=== PATIENT | female | born 1940 | race Caucasian/White ===

== ENCOUNTER → 2018-05-04 | Outpatient (CLI) | payer MEDICARE, OTHER ==
[~2018-05-04] MED LIST: AMOX-362 PO; ASPI-1471 PO; ASPI-757 PO; ATOR10TA24 PO; ATOR40TA69 PO; BACDS PO; CALC-649 PO; CIP500 PO; CIPRO; CLAR-1 PO; FLU45SYR17 IM; GINK40TA PO; HCTZ25 PO; HYDR-385 PO; HYDR12.561 PO; IBU600 PO; KET10 PO; LEV112 PO; LEV500 PO; LEVO-3 PO; LEVO88TA45 PO; METO100T20 PO; METO50TA19 PO; METR-1 PO; METXL50 PO; OMEP-125 PO; ONDA4TAB PO; PAN20 PO; PER PO; PNEU0.5D3 IM; POTA10CA40 PO; TRA50 PO; VITA1CAP46 PO
--- NOTE | 2018-05-11 10:16 | RADIOLOGY IMAGING REPORT ---
[place] [facility] [place] NAME: TATIANNA SAMSON : [id number] MR: [id number] V: [id number] EXAM DATE: [id number] ORDERING PHYSICIAN: MAIKOL CLINE TECHNOLOGIST: Danika Alvarenga PROCEDURE: MAMMOGRAM SCREENING LEFT UNILATERAL WITH CAD ASSISTED INTERPRETATION & 3D TOMOSYNTHESIS COMPARISON: 03/29/17 & PRIORS TO 10/06/11 INDICATIONS: SCREENING/MASTECTOMY 2000 FINDINGS: The Left breast has scattered fibroglandular parenchymal densities. There are no mammographic findings concerning for malignancy. No significant interval change. DIAGNOSTIC CATEGORY 1--NEGATIVE. RECOMMENDATIONS: ROUTINE MAMMOGRAM AND CLINICAL EVALUATION IN 1 YEAR. IMPRESSION: BIRADS 1: Negative Dictated by: Arnold Michel on 05/11/2018 at 8:37 Transcribed by: RAMÓN on 05/11/2018 at 9:47 Approved by: Arnold Michel on 05/11/2018 at 10:14 [facility]
== END ==
LOC: MAMO 00:43
PROVIDERS: ATTEND Family Medicine
DX: Z12.31 Encounter for screening mammogram for malignant neoplasm of breast (principal)
CPT/HCPCS: 77063; 77067

== ENCOUNTER 2018-05-26 12:21 | Emergency (ER) | payer MEDICARE, OTHER ==
[2018-05-26] MEDS ORDERED: ASPI-1471 PO (12:36)
[2018-05-26] MEDS ORDERED: ATOR10TA24 PO (12:36)
[2018-05-26] MEDS ORDERED: LEVO-3 PO (12:36)
[2018-05-26] MEDS ORDERED: CYAN250013 PO (12:36)
[2018-05-26] MEDS ORDERED: METO50TA19 PO (12:36)
[2018-05-26] MEDS ORDERED: FEXO1TAB63 PO (12:36)
--- NOTE | 2018-05-26 12:38 | ER Report ---
History and Physical Time Seen By MD: 12:39 Hx. 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 PT ALSO REPORTS ACHE IN LEFT LATERAL HEAD/NECK X 1 WEEK. HPI/ROS 78 y/o female was at her baseline health this morning when she felt a pain in the back of her left neck, followed by palpitations, and then the anterior portion of her left thigh felt "numb." The symptoms spontaneously resolved. She denies chest pain or sob. Has been well lately with no episodes of vomiting/diarrhea. She takes her medications as prescribed. As far as her neck pain, she has had previous similar episodes, and knows that it is because she turns her neck a certain way when she reads or watches television. She has also had previous episodes of palpitations. Remainder of the 14 system rev: Yes Allergies: Coded Allergies: codeine (Verified Adverse Reaction, Intermediate, NAUSEA/VOMITING, 05/26/18) Home Meds Reported Medications Fexofenadine Hcl/Pseudoephedr (JUJU-D 24 HOUR TABLET) 1 Each Tabsr, 1 TAB PO QDAY 05/26/18 Cyanocobalamin (Vitamin B-12) (Vitamin B12) 2,500 Mcg Tab.chew, PO DAILY 05/26/18 Metoprolol Succinate (METOPROLOL SUCCINATE) 50 Mg Tab.er.24h, 1 TAB PO QDAY, TAB 05/26/18 Levothyroxine Sodium (LEVOTHYROXINE SODIUM) 100 Mcg Tablet, 100 MCG PO QDAY, TAB 05/26/18 Atorvastatin Calcium (LIPITOR) 10 Mg Tablet, 1 TAB PO QDAY, TAB 05/26/18 Aspirin (ASPIR 81) 81 Mg Tablet.dr, 81 MG PO QDAY, TAB 05/26/18 Vitamin B Complex (VITAMIN B COMPLEX) 1 Each Capsule, 1 TAB PO DAILY, CAPSULE 10/27/15 Discontinued Reported Medications Aspirin (ASPIRIN) 325 Mg Tablet, 325 MG PO QDAY, TAB 02/17/16 Discontinued Scripts Levothyroxine Sodium (LEVOTHYROXINE SODIUM) 88 Mcg Tablet, 88 MCG PO QDAY, #30 TAB 0 Refills Prov:NEO MARQUEZ MD 08/11/16 Metoprolol Succinate (METOPROLOL SUCCINATE) 100 Mg Tab.er.24h, 1 TAB PO QDAY, #90 TAB 4 Refills Prov:NEO MARQUEZ MD 03/29/16 Atorvastatin Calcium (ATORVASTATIN CALCIUM) 40 Mg Tablet, 1 TAB PO QDAY, #90 TAB 1 Refill Prov:NEO MARQUEZ MD 08/12/15 Reviewed Nurses Notes: Yes Old Medical Records Reviewed: Yes Hx Smoking: Yes Smoking Status: Former Smoker Hx Substance Use Disorder: No Hx Alcohol Use: Yes Constitutional Vital Sign - Last 24 Hours 05/26/18 05/26/18 05/26/18 05/26/18 12:26 12:30 12:45 13:00 Temp 97.7 Pulse 70 67 65 67 Resp 18 24 11 17 B/P (MAP) 180/95 154/81 (105) 160/78 (105) Pulse Ox 95 95 94 96 O2 Delivery Room Air 05/26/18 05/26/18 05/26/18 05/26/18 13:15 13:30 13:45 14:00 Pulse 65 64 63 62 Resp 13 18 16 18 B/P (MAP) 161/71 (101) 145/76 (99) Pulse Ox 90 91 97 94 05/26/18 14:15 Pulse 62 Resp 16 Pulse Ox 93 Physical Exam General Appearance: The patient is alert, has no immediate need for airway protection and no current signs of toxicity. Eyes: Pupils equal and round no injection. Respiratory: Chest is non tender, lungs are clear to auscultation. Cardiac: regular rate and rhythm Gastrointestinal: Abdomen is soft and non tender, no masses, bowel sounds normal. Neck: Neck is supple with mild TTP of the left trapezius muscle. No midline TTP. Extremities have full range of motion and are non tender. Skin: No rashes or lesions. DIFFERENTIAL DIAGNOSIS: After history and physical exam differential diagnosis was considered for ACS, dissection, CVA, trauma, electrolyte abnormality Medical Decision Making Data Points Result Diagram: 05/26/18 1331 05/26/18 1331 Laboratory Hematology Test 05/26/18 00:00 05/26/18 13:31 Red Blood Count 4.35 M/uL (4.17-5.56) Mean Corpuscular Volume 91.3 fL (80.0-96.0) Mean Corpuscular Hemoglobin 30.9 pg (26.0-33.0) Mean Corpuscular Hemoglobin Concent 33.9 g/dL (32.0-36.0) Red Cell Distribution Width 13.5 % (11.5-14.5) Mean Platelet Volume 8.6 fL (7.2-11.1) Neutrophils (%) (Auto) 57.6 % (39.4-72.5) Lymphocytes (%) (Auto) 29.8 % (17.6-49.6) Monocytes (%) (Auto) 8.5 % (4.1-12.4) Eosinophils (%) (Auto) 3.1 % (0.4-6.7) Basophils (%) (Auto) 1.0 % (0.3-1.4) Nucleated RBC Relative Count (auto) 0.0 /100WBC Neutrophils # (Auto) 3.5 K/uL (2.0-7.4) Lymphocytes # (Auto) 1.8 K/uL (1.3-3.6) Monocytes # (Auto) 0.5 K/uL (0.3-1.0) Eosinophils # (Auto) 0.2 K/uL (0.0-0.5) Basophils # (Auto) 0.1 K/uL (0.0-0.1) Nucleated RBC Absolute Count (auto) 0.00 K/uL Sodium Level 136 mmol/L (137-145) Potassium Level 4.0 mmol/L (3.5-5.0) Chloride Level 103 mmol/L (98-107) Carbon Dioxide Level 26 mmol/L (22-31) Blood Urea Nitrogen 18 mg/dl (7-18) Creatinine 1.00 mg/dl (0.52-1.04) Glomerular Filtration Rate Calc 53.3 Random Glucose 97 mg/dl (75-110) Calcium Level 9.4 mg/dl (8.4-10.2) Total Bilirubin 0.3 mg/dl (0.2-1.3) Aspartate Amino Transf (AST/SGOT) 25 U/L (0-35) Alanine Aminotransferase (ALT/SGPT) 24 U/L (0-56) Alkaline Phosphatase 73 U/L (0-126) Total Protein 7.2 g/dl (6.3-8.2) Albumin 3.9 g/dl (3.5-5.0) Chemistry Test 05/26/18 00:00 11/30/18 13:31 White Blood Count 6.1 k/uL (4.5-11.0) Red Blood Count 4.35 M/uL (4.17-5.56) Hemoglobin 13.5 g/dL (12.0-16.0) Hematocrit 39.8 % (34.0-47.0) Mean Corpuscular Volume 91.3 fL (80.0-96.0) Mean Corpuscular Hemoglobin 30.9 pg (26.0-33.0) Mean Corpuscular Hemoglobin Concent 33.9 g/dL (32.0-36.0) Red Cell Distribution Width 13.5 % (11.5-14.5) Platelet Count 218 K/uL (150-450) Mean Platelet Volume 8.6 fL (7.2-11.1) Neutrophils (%) (Auto) 57.6 % (39.4-72.5) Lymphocytes (%) (Auto) 29.8 % (17.6-49.6) Monocytes (%) (Auto) 8.5 % (4.1-12.4) Eosinophils (%) (Auto) 3.1 % (0.4-6.7) Basophils (%) (Auto) 1.0 % (0.3-1.4) Nucleated RBC Relative Count (auto) 0.0 /100WBC Neutrophils # (Auto) 3.5 K/uL (2.0-7.4) Lymphocytes # (Auto) 1.8 K/uL (1.3-3.6) Monocytes # (Auto) 0.5 K/uL (0.3-1.0) Eosinophils # (Auto) 0.2 K/uL (0.0-0.5) Basophils # (Auto) 0.1 K/uL (0.0-0.1) Nucleated RBC Absolute Count (auto) 0.00 K/uL Glomerular Filtration Rate Calc 53.3 Calcium Level 9.4 mg/dl (8.4-10.2) Total Bilirubin 0.3 mg/dl (0.2-1.3) Aspartate Amino Transf (AST/SGOT) 25 U/L (0-35) Alanine Aminotransferase (ALT/SGPT) 24 U/L (0-56) Alkaline Phosphatase 73 U/L (0-126) Total Protein 7.2 g/dl (6.3-8.2) Albumin 3.9 g/dl (3.5-5.0) EKG/Imaging EKG Interpretation 12 lead EKG: Rhythm: normal sinus rhythm [place]: normal QRS: normal ST segments: normal ED Course/Re-evaluation ED Course Most of the patient's symptoms are acute on chronic. As far as her neck pain, she does not have any carotid bruits and her physical exam is consistent with muscle strain from the way she reads and watches TV. She was given a hotpack it helped with her symptoms. As far as her palpitations, a TSH was sent but the patient says that her latest labs were normal as far as her TSH. Her EKG shows no evidence of PVCs or dysrhythmia. No evidence of atrial fibrillation. I did note one PVC on the in room monitor that she could be experiencing. As far as the paresthesias in her left anterior thigh, the patient admits that when the symptoms started she was panicking quite a bit and nervous about her other symptoms. She denies any back pain, rashes, or previous episodes of anterior thigh paresthesias. This is not consistent with a TIA or CVA. Her electrolytes are normal. We reviewed her medications. She will follow-up with her primary care physician. Decision to Disposition Date: May 26, 2018 Decision to Disposition Time: 14:23 Depart Departure Latest Vital Signs Vital Signs Date Time Temp Pulse Resp B/P (MAP) Pulse Ox O2 Delivery O2 Flow Rate FiO2 05/26/18 14:15 62 16 93 05/26/18 14:00 145/76 (99) 05/26/18 12:26 97.7 Room Air Impression: Primary Impression: Palpitations Additional Impression: Muscle strain Condition: Improved Disposition: HOME OR SELF-CARE Patient Instructions: Neck Strain Exercises (GEN), Palpitations (ED) Problem Qualifiers TOOTIE BRYANT MD May 26, 2018 12:38
[2018-05-26 13:37] LABS: PLATELET COUNT, AUTOMATED 218 K/uL (150-450)
--- NOTE | 2018-05-26 13:39 | EKG ---
FACILITY: [facility] - [place] PATIENT NAME: TATIANNA SAMSON : [id number] MR: [id number] V: [id number] EXAM DATE: ORDERING PHYSICIAN: TOOTIE BRYANT TECHNOLOGIST: Test Reason : Palpitations Blood Pressure : / mmHG Vent. Rate : 061 BPM Atrial Rate : 061 BPM P-R Int : 162 ms QRS Dur : 066 ms QT Int : 416 ms P-R-T Axes : 066 017 033 degrees QTc Int : 418 ms Normal sinus rhythm ST abnormality, possible digitalis effect Abnormal ECG When compared with ECG of 17-FEB-2016 13:30, T wave inversion now evident in Anterior leads Confirmed by DANA GODDARD ([id number]) on 05/26/2018 8:53:48 PM Referred By: Confirmed By:DANA GODDARD
[2018-05-26 14:00] VITALS: BP 145/76
== END 2018-05-26 14:28 | disposition home or self-care (01) ==
LOC: ER 12:53
DX: R00.2 Palpitations (principal); S16.1XXA Strain of muscle, fascia and tendon at neck level, initial encounter
CPT/HCPCS: 36415; 82040; 82247; 82310; 82374; 82435; 82565; 82947; 84075; 84132; 84155; 84295; 84443; 84450; 84460; 84520; 85025; 93005; 99283

== ENCOUNTER → 2018-06-12 | Outpatient (CLI) | payer MEDICARE, OTHER ==
[~2018-06-12] MED LIST changes: +CYAN250013 PO; +FEXO1TAB63 PO
--- NOTE | 2018-06-12 10:31 | RADIOLOGY IMAGING REPORT ---
FACILITY: [facility] PATIENT NAME: Tiffany Du : 1940 MR: [id number] V: [id number] EXAM DATE: [id number] ORDERING PHYSICIAN: MAIKOL CLINE TECHNOLOGIST: Location: [facility] - [place] Patient: Tiffany Du : 1940 Visit/Account:[id number] Date of Sevice: 06/12/2018 L SPINE W/O CONTRAST COMPARISON: None Additional pertinent history: Left leg numbness for one week. Right leg pain. Technique: Multiplanar multisequence lumbar spine MRI was performed without gadolinium enhancement. FINDINGS: Vertebral body heights and alignment: Mild retrolisthesis of L2 on L3. Mild grade 1 anterior listhesi s of L4 on L5. Vertebral marrow signal: Type II degenerative endplate changes at L5-S1. Mild type one degenerative e ndplate changes at L4-L5. Mild type one degenerative endplate changes at L1-L2 Distal thoracic cord and conus: Negative. The conus ends at L1. Surrounding soft tissues: Negative. Inspection of the disc spaces reveal the following: L5-S1: Posterior broad-based disc protrusion with a central annular tear. Facet hypertrophic changes. No significant canal or neural foraminal narrowing. L4-L5: Mild grade 1 anterior listhesis of L4 on L5. Posterior broad-based disc protrusion with facet hypertrophic changes. Mild bilateral neural foraminal narrowing with mild canal stenosis. L3-L4: Posterior broad-based disc protrusion with facet hypertrophic changes. No significant canal or neural foraminal narrowing. L2-L3: Mild retrolisthesis of L2 on L3. Posterior broad-based disc protrusion with facet hypertrophic changes. Mild bilateral neural foraminal narrowing without canal stenosis. L1-L2: Circumferential disc bulging with facet hypertrophic changes. No significant canal or neural f oraminal narrowing. T12-L1: Negative. IMPRESSION: 1. Multilevel spondylitic change as discussed above. 2. Findings felt to be potentially most significant at L4-L5 with mild canal stenosis and mild bilate ral neural foraminal narrowing. Report Dictated By: Newton Harrell MD at 06/12/2018 10:19 AM Report E-Signed By: Newton Harrell MD at 06/12/2018 10:27 AM [id number]
== END ==
LOC: MRI 01:54
PROVIDERS: ATTEND Family Medicine
DX: M48.07 Spinal stenosis, lumbosacral region (principal); M54.5 Low back pain
CPT/HCPCS: 72148